=== PATIENT | male | born 1995 | race African-American/Black ===

== ENCOUNTER 2017-05-28 13:41 | Emergency (ER) | payer MEDICAID, OTHER ==
[~2017-05-28] VITALS: Ht 177.8 cm; Wt 83.0 kg
[~2017-05-28 13:41] MED LIST: HYDR-565 PO
[2017-05-28 13:52] VITALS: BP 155/94
[2017-05-28] MEDS ORDERED: proparacaine 0.5% ophthalmic drops 15ml EACHEYE ONE (14:25)
[2017-05-28] MEDS ORDERED: ERYT1OIN6 EACHEYE (14:47)
[2017-05-28] MEDS ORDERED: CETI-102 PO (14:47)
== END 2017-05-28 15:09 | disposition home or self-care (01) ==
LOC: ER 13:42
DX: H11.423 Conjunctival edema, bilateral (principal); Z98.890 Other specified postprocedural states; Z79.899 Other long term (current) drug therapy
CPT/HCPCS: 99283

== ENCOUNTER 2017-06-01 10:10 | Emergency (ER) | payer MEDICAID, OTHER ==
[~2017-06-01] VITALS: Ht 177.8 cm; Wt 84.0 kg
[~2017-06-01 10:10] MED LIST changes: +CETI-102 PO; +ERYT1OIN6 EACHEYE
[2017-06-01 10:16] VITALS: BP 144/76
[2017-06-01] MEDS ORDERED: proparacaine 0.5% ophthalmic drops 15ml EACHEYE ONE (10:35)
[2017-06-01] MEDS ORDERED: tobramycin/dexamethasone ophthalmic suspension EACHEYE ONE (11:00)
== END 2017-06-01 11:41 | disposition home or self-care (01) ==
LOC: ER 10:10
DX: H11.423 Conjunctival edema, bilateral (principal); Z98.890 Other specified postprocedural states; Z79.899 Other long term (current) drug therapy
CPT/HCPCS: 99283